=== PATIENT | female | born 1990 | race African-American/Black ===

== ENCOUNTER 2024-07-30 23:39 | Emergency (ER) | payer BC ==
[2024-07-31 00:51] LABS: #Basophils 0.04 10x3/uL (0.0-0.2); %Basophils 0.5 % (0.0-1.0); %Eosinophils 1.2 % (0.0-10.0); %Lymphocytes 40.4 % (21.0-51.0); %Monocytes 5.1 % (0.0-10.0); %Neutrophils 52.6 % (42.0-75.0); Hematocrit 41.2 % (36.0-47.0); Hemoglobin 12.6 g/dL (12.0-16.0); Mean Corpuscular HGB CONC 30.6 g/dL (32.0-36.0); Mean Corpuscular Hemoglobin 27.6 pg (27.0-31.0); Mean Corpuscular Volume 90.2 fL (78.0-98.0); Mean Platelet Volume 10.9 fL (7.4-10.4); Platelet Count 317 10x3/uL (130-400); RBC Distribution Width 13.3 % (11.5-14.5); Red Blood Cell (RBC) Count 4.57 mill/uL (4.20-5.40)
[2024-07-31 01:01] LABS: BHCG - Serum Negative (NEGATIVE); Pregs Control Background? CLEAR/WHITE (CLR/WHITE); Pregs Control Bar Appear? YES (CONTROL BAR)
[2024-07-31 01:07] LABS: ALT (SGPT) 23 U/L (8-55); AST (SGOT) 42 U/L (5-34); Albumin 3.5 g/dL (3.5-5.0); Alkaline Phosphatase 64 U/L (40-110); Anion Gap 19 mmol/L (10-20); BUN (Urea Nitrogen) 15 mg/dL (7.0-18.7); Bilirubin, Total 0.9 mg/dL (0.2-1.2); Calc. Creatinine Clearance 0 mL/min (70-130); Calcium 9.9 mg/dL (7.8-10.44); Carbon Dioxide 25 mmol/L (22-29); Chloride 105 mmol/L (98-107); Estimated GFR 76; Glucose 80 mg/dL (70-105); Protein, Total 7.5 g/dL (6.0-8.3); Sodium 146 mmol/L (136-145)
[2024-07-31 01:08] LABS: INR-International Normal Ratio 1.2; PTT 34.6 sec (22.9-36.1); Prothrombin Time 15.5 sec (12.0-14.7)
[2024-07-31 01:11] LABS: Troponin I Less than 0.010 ng/mL (< 0.028)
[2024-07-31] MEDS ORDERED: Potassium Bicarbonate/Cit Ac 20 MEQ TAB ONE (03:22)
[2024-07-31] MEDS ORDERED: Iopamidol-370 76% 500 ML MDV (1 ML CHARGE) ONE (11:16)
== END 2024-07-31 03:45 | disposition home or self-care (01) ==
LOC: ERS 23:39
DX: E87.6 Hypokalemia (principal); R06.00 Dyspnea, unspecified; I10 Essential (primary) hypertension
CPT/HCPCS: 36415; 71045; 71275; 80053; 83880; 84484; 84703; 85025; 85610; 85730; 93005; Q9967